=== PATIENT | male | born 1985 | race Caucasian/White ===

== ENCOUNTER 2016-05-22 09:29 | Emergency (ER) | payer OTHER, SELFPAY ==
[~2016-05-22] VITALS: Ht 177.8 cm; Wt 88.5 kg
[2016-05-22 09:29] VITALS: BP 135/80
[2016-05-22] MEDS ORDERED: COLD1MIS2 PO (09:41)
[2016-05-22] MEDS ORDERED: AMOX500C PO (10:29)
[2016-05-22] MEDS ORDERED: AMOXICILLIN 500 MG CAP PO ONE (10:30)
== END 2016-05-22 10:39 | disposition home or self-care (01) ==
LOC: M ED 10:06
DX: H65.02 Acute serous otitis media, left ear (principal); J06.9 Acute upper respiratory infection, unspecified; B34.9 Viral infection, unspecified

== ENCOUNTER 2016-12-06 09:52 | Emergency (ER) | payer OTHER ==
[~2016-12-06] VITALS: Ht 177.8 cm; Wt 84.1 kg
[~2016-12-06 09:52] MED LIST: AMOX500C PO; COLD1MIS2 PO
[2016-12-06 10:01] VITALS: BP 114/75
[2016-12-06] MEDS ORDERED: ERYTOIN8 OS (11:26)
== END 2016-12-06 11:33 | disposition home or self-care (01) ==
LOC: M ED 09:52
DX: H10.32 Unspecified acute conjunctivitis, left eye (principal)

== ENCOUNTER 2017-03-26 18:04 | Emergency (ER) | payer OTHER ==
[2017-03-26] MEDS: MECLIZINE 25 MG TABLET PO (19:44)
== END 2017-03-26 20:54 | disposition home or self-care (01) ==
LOC: M ED 18:04
DX: H81.391 Other peripheral vertigo, right ear (principal); R09.81 Nasal congestion
CPT/HCPCS: 70450

== ENCOUNTER 2017-05-03 13:28 | Emergency (ER) | payer OTHER ==
[2017-05-03] MEDS: LIDOCAINE 2% MDV 20 ML VIAL SC (14:45)
== END 2017-05-03 15:26 | disposition home or self-care (01) ==
LOC: M ED 13:28
DX: S62.316A Displaced fracture of base of fifth metacarpal bone, right hand, initial encounter for closed fracture (principal); W22.09XA Striking against other stationary object, initial encounter; Y92.098 Other place in other non-institutional residence as the place of occurrence of the external cause
CPT/HCPCS: 73110

== ENCOUNTER → 2022-05-29 | Outpatient (CLI) | payer OTHER ==
[~2022-05-29] MED LIST changes: +ERYTOIN8 OS; +FLON1SPR; +MECL1TAB31 PO; +PERC5TAB12 PO; +SUDA1TAB3 PO
== END ==
LOC: M PLARAD 07:46
PROVIDERS: ATTEND Family Medicine
DX: M71.21 Synovial cyst of popliteal space [Baker], right knee (principal); R93.6 Abnormal findings on diagnostic imaging of limbs

== ENCOUNTER → 2022-09-16 | Outpatient (CLI) | payer OTHER ==
[2022-09-16 10:12] LABS: BASO % 0.6 % (0.0-1.0); EOS # 0.1 10^3/uL (0.0-0.5); EOS % 2.1 % (0.0-3.0); HEMATOCRIT 46.7 % (42.0-52.0); HEMOGLOBIN 15.6 g/dl (13.5-17.5); LYMPH # 1.8 10^3/uL (1.5-5.0); LYMPH % 34.5 % (24.0-44.0); MEAN CORPUSCULAR HEMOGLOBIN 30.5 pg (27.0-33.0); MEAN CORPUSCULAR HGB CONC 33.4 g/dl (32.0-36.5); MEAN CORPUSCULAR VOLUME 91.2 fl (80.0-96.0); MONO # 0.7 10^3/uL (0.0-0.8); MONO % 12.7 % (2.0-8.0); NEUTROPHILS # 2.6 10^3/uL (1.5-8.5); NEUTROPHILS % 49.9 % (36.0-66.0); PLATELET COUNT, AUTOMATED 226 10^3/uL (150-450); RED BLOOD COUNT 5.12 10^6/uL (4.30-6.10); WHITE BLOOD COUNT 5.2 10^3/uL (4.0-10.0)
[2022-09-16 10:41] LABS: ALBUMIN 4.2 G/DL (3.2-5.2); ALKALINE PHOSPHATASE 68 U/L (46-116); ALT/SGPT 30 U/L (7.0-40); AST/SGOT 15 U/L (<34); BILIRUBIN,TOTAL 1.2 MG/DL (0.3-1.2); BLOOD UREA NITROGEN 11 MG/DL (9-23); CALCIUM LEVEL 8.8 MG/DL (8.5-10.1); CARBON DIOXIDE LEVEL 26 MMOL/L (20-31); CHLORIDE LEVEL 105 MMOL/L (98-107); CHOLESTEROL LEVEL 185 MG/DL (<200); CHOLESTEROL RISK RATIO 2.91 (<5); CREATININE FOR GFR 0.84 MG/DL (0.70-1.30); GLOMERULAR FILTRATION RATE > 60.0 (>60); GLUCOSE, FASTING 93 MG/DL (60-100); HDL CHOLESTEROL 63.5 MG/DL (>40); LDL CHOLESTEROL 110.3 MG/DL (<100); NON-HDL-C 121.5 MG/DL; POTASSIUM SERUM 3.9 MMOL/L (3.5-5.1); SODIUM LEVEL 141 MMOL/L (136-145); TOTAL PROTEIN 6.9 G/DL (5.7-8.2); TRIGLYCERIDES LEVEL 56 MG/DL (<150)
[2022-09-16 11:15] LABS: HEPATITIS C VIRUS ABY INDEX 0.12 INDEX (<0.8)
== END ==
LOC: M WUC 08:12
PROVIDERS: ATTEND Family Medicine
DX: Z00.00 Encounter for general adult medical examination without abnormal findings (principal); Z11.59 Encounter for screening for other viral diseases

== ENCOUNTER → 2023-04-15 | Outpatient (CLI) | payer OTHER ==
[~2023-04-15] MED LIST changes: +MECL-209 PO; -MECL1TAB31 PO
== END ==
LOC: M WUC 11:40
PROVIDERS: ATTEND Family Medicine
DX: M54.9 Dorsalgia, unspecified (principal); M25.521 Pain in right elbow